=== PATIENT | male | born 1960 | race Caucasian/White ===

== ENCOUNTER 2018-01-29 11:46 | Emergency (ER) | payer BC ==
--- NOTE | 2018-01-29 12:20 | EDM.PDOC ---
ED HPI GENERAL MEDICAL PROBLEM - General Chief Complaint: Neuro Symptoms/Deficits Stated Complaint: DIZZY, BLURY VISIION Time Seen by Provider: 01/29/18 12:09 Source of Information: Reports: Patient History Limitations: Reports: No Limitations - History of Present Illness INITIAL COMMENTS - FREE TEXT/NARRATIVE: pt was on a conference call and he developed blurred vision and he later was feeling confused and this lasted for about 1 hour. He then cleared and he felt normal. He dioes not have a headache. He has normal vision at this time. Onset: Sudden Duration: Hour(s): Location: Reports: Head Associated Symptoms: Reports: Confusion - Related Data Allergies Allergy/AdvReac Type Severity Reaction Status Date / Time No Known Allergies Allergy Verified 01/29/18 13:28 Home Meds: Home Meds NK [No Known Home Meds] 01/29/18 [History] ED ROS GENERAL - Review of Systems Review Of Systems: See Below Constitutional: Reports: No Symptoms HEENT: Reports: Other (pt has visual blurring and he felt like he was not hearing what he was told at the clinic. He was not processing. ) Respiratory: Reports: No Symptoms Cardiovascular: Reports: No Symptoms Endocrine: Reports: No Symptoms GI/Abdominal: Reports: No Symptoms : Reports: No Symptoms Musculoskeletal: Reports: No Symptoms Skin: Reports: No Symptoms ED EXAM, NEURO - Physical Exam Exam: See Below Text/Narrative:: pt arrived stating that he had about 1 hour of blurred vision and then he was having trouble thinking and was not able to follow directuions. He did not have a headache. He was not dizzy or sick to his stomach. Exam Limited By: No Limitations General Appearance: Alert, No Apparent Distress, Anxious, Other (pupils are equal and reactive. ) Ears: Normal TMs Nose: Normal Inspection Throat/Mouth: Normal Inspection Head Exam: Atraumatic Neck: Supple Respiratory/Chest: No Respiratory Distress Cardiovascular: Regular Rate, Rhythm GI/Abdominal: Soft, Non-Tender (Male) Exam: Deferred Rectal (Males) Exam: Deferred Neurological: Alert, Oriented x 3 Back Exam: Normal Inspection Extremities: Normal Inspection Psychiatric: Normal Affect, Anxious Course - Vital Signs Last Recorded V/S: Last Vital Signs Temp 35.4 C 01/29/18 12:00 Pulse 56 L 01/29/18 12:00 Resp 14 01/29/18 12:00 BP 122/54 L 01/29/18 12:00 Pulse Ox 100 01/29/18 12:00 - Orders/Labs/Meds Orders: Active Orders 24 hr Category Date Time Status EKG Documentation Completion [RC] ASDIRECTED Care 01/29/18 12:09 Active Brain wo Cont [MR] Stat Exams 01/29/18 15:43 Taken Sodium Chloride 0.9% [Saline Flush] Med 01/29/18 15:05 Active 10 ml FLUSH ASDIRECTED PRN Saline Lock Insert [OM.PC] Routine Oth 01/29/18 15:05 Ordered EKG 12 Lead [EK] Routine Ther 01/29/18 12:09 Ordered Medication Orders Sodium Chloride (Saline Flush) 10 ml FLUSH ASDIRECTED PRN PRN Reason: Keep Vein Open Last Admin: 01/29/18 15:53 Dose: 10 ml Labs: Laboratory Tests 01/29/18 01/29/18 01/29/18 Range/Units 12:25 12:25 13:22 WBC 7.4 (4.5-11.0) K/uL RBC 5.00 (4.30-5.90) M/uL Hgb 15.4 H (12.0-15.0) g/dL Hct 45.3 (40.0-54.0) % MCV 91 (80-98) fL MCH 31 (27-31) pg MCHC 34 (32-36) % Plt Count 247 (150-400) K/uL Neut % (Auto) 72 H (36-66) % Lymph % (Auto) 20 L (24-44) % Castro % (Auto) 8 H (2-6) % Eos % (Auto) 0 L (2-4) % Baso % (Auto) 0 (0-1) % Sodium 137 L (140-148) mmol/L Potassium 4.4 (3.6-5.2) mmol/L Chloride 101 (100-108) mmol/L Carbon Dioxide 26 (21-32) mmol/L Anion Gap 14.4 H (5.0-14.0) mmol/L BUN 13 (7-18) mg/dL Creatinine 0.9 (0.8-1.3) mg/dL Est Cr Clr Drug Dosing 3.35 mL/min Estimated GFR (MDRD) > 60 (>60) Glucose 101 (74-106) mg/dL Calcium 8.3 L (8.5-10.1) mg/dL Total Bilirubin 0.6 (0.2-1.0) mg/dL AST 23 (15-37) U/L ALT 39 (12-78) U/L Alkaline Phosphatase 78 (46-116) U/L Total Protein 7.7 (6.4-8.2) g/dL Albumin 4.1 (3.4-5.0) g/dL Globulin 3.6 H (2.3-3.5) g/dL Albumin/Globulin Ratio 1.1 L (1.2-2.2) Urine Color Yellow Urine Appearance Clear Urine pH 6.0 (4.5-8.0) Ur Specific N[place]bit 1.005 L (1.008-1.030) Urine Protein Negative (NEGATIVE) mg/dL Urine Glucose (UA) Normal (NEGATIVE) mg/dL Urine Ketones Negative (NEGATIVE) mg/dL Urine Occult Blood Negative (NEGATIVE) Urine Nitrite Negative (NEGAITVE) Urine Bilirubin Negative (NEGATIVE) Urine Urobilinogen Normal (NORMAL) mg/dL Ur Leukocyte Esterase Negative (NEGATIVE) Urine RBC 0-5 (0-5) Urine WBC 0-5 (0-5) Ur Epithelial Cells Few Amorphous Sediment Not seen Urine Bacteria Few Urine Mucus Not seen Meds: Medications Generic Name Dose Route Start Last Admin Trade Name Freole PRN Reason Stop Dose Admin Sodium Chloride 10 ml 01/29/18 15:05 01/29/18 15:53 Saline Flush FLUSH 10 ml ASDIRECTED PRN Administration Keep Vein Open Discontinued Medications Generic Name Dose Route Start Last Admin Trade Name Freole PRN Reason Stop Dose Admin Lorazepam 0.5 mg 01/29/18 15:06 Ativan IVPUSH 01/29/18 15:07 ONETIME ONE Lorazepam 0.5 mg 01/29/18 15:06 Ativan PO 01/29/18 15:07 ONETIME ONE Lorazepam 1 mg 01/29/18 15:44 01/29/18 15:50 Ativan IVPUSH 01/29/18 15:45 1 mg ONETIME ONE Administration - Re-Assessments/Exams Free Text/Narrative Re-Assessment/Exam: 01/29/18 15:23 pt had a normal ekg, normal lab work. His cat scan of the head was normal. A MRI of the head was reccommended by Dr Winkler neurology [facility]. This was attempted and he was not able to tolerate it. He will need some sedation. The Patient did not want to do it today but will return tomorrow for the study. 01/29/18 17:32 Mri of the head was normal. Departure - Departure Time of Disposition: 15:08 Disposition: Home, Self-Care 01 Condition: Fair Clinical Impression: Blurred vision, Confusion - Discharge Information Instructions: Blurred Vision, Adult, Confusion Referrals: Mitul Hay MD [Primary Care Provider] - Forms: ED Department Discharge Care Plan Goals: Mri was normal, rtc if further problems. If further symptoms see neurology. - My Orders Last 24 Hours: My Active Orders 01/29/18 12:09 EKG Documentation Completion [RC] ASDIRECTED EKG 12 Lead [EK] Routine 01/29/18 15:05 Sodium Chloride 0.9% [Saline Flush] 10 ml FLUSH ASDIRECTED PRN Saline Lock Insert [OM.PC] Routine 01/29/18 15:43 Brain wo Cont [MR] Stat - Assessment/Plan Last 24 Hours: My Active Orders 01/29/18 12:09 EKG Documentation Completion [RC] ASDIRECTED EKG 12 Lead [EK] Routine 01/29/18 15:05 Sodium Chloride 0.9% [Saline Flush] 10 ml FLUSH ASDIRECTED PRN Saline Lock Insert [OM.PC] Routine 01/29/18 15:43 Brain wo Cont [MR] Stat
--- NOTE | 2018-01-29 13:11 | CT ---
Head wo Cont CLINICAL HISTORY: Blurred vision, confusion COMPARISON: None TECHNIQUE: Transverse scans were obtained from the base of the skull through the vertex without IV co ntrast on a multislice, multidetector CT scanner. Auto dosage reduction and iterative reconstruction techniques employed. FINDINGS: No focal abnormal parenchymal density is identified.. There is no mass effect, hemorrhage, or extraaxial collection. The basal cisterns and sulci over the convexities are normal. The ventricle s are normal for age. IMPRESSION: Essentially negative CT head without
[2018-01-29] MEDS ORDERED: Sodium Chloride 0.9% 10 ML Syringe FLUSH PRN (15:05)
[2018-01-29] MEDS ORDERED: LORazepam 0.5 MG Tab PO ONE (15:06)
[2018-01-29] MEDS ORDERED: LORazepam 2 MG/ML SDV IVPUSH ONE ×2 (15:06→15:44)
== END 2018-01-29 17:45 | disposition home or self-care (01) ==
LOC: JP.ED 11:46
DX: H53.8 Other visual disturbances (principal); R41.0 Disorientation, unspecified
CPT/HCPCS: 36415; 70450; 70551; 80053; 81001; 85025; 93005; 96374; 96376; 99285; J2060; J7050

== ENCOUNTER 2019-08-22 16:30 | Emergency (ER) | payer BC ==
--- NOTE | 2019-08-22 17:30 | EDM.PDOC ---
ED HPI GENERAL MEDICAL PROBLEM - General Chief Complaint: Trauma Stated Complaint: FALL OFF LADDER Time Seen by Provider: 08/22/19 17:10 Source of Information: Reports: Patient, Family, Old Records History Limitations: Reports: No Limitations - History of Present Illness INITIAL COMMENTS - FREE TEXT/NARRATIVE: 58 yo male fell off a ladder landing in the dirt on his side. Believes he hit the R side of his head and was transiently disoriented. There was no LOC, or vomiting. Does have a mild LACKEY. Is not on any anticoagulants. Denies a stiff neck. Is here via car with his . No other areas of injury. Onset: Today Onset Date: 08/22/19 Onset Time: 15:45 Duration: Minutes:, Improving Location: Reports: Head Quality: Reports: Ache (mild) Severity: Mild Improves with: Reports: Other (time) Worsens with: Reports: None Context: Reports: Trauma Associated Symptoms: Reports: Headaches. 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: Reports: Other (see below) (none) right lower leg and back slight headache Pain Score (Numeric/FACES): 2 - Related Data Allergies Allergy/AdvReac Type Severity Reaction Status Date / Time No Known Allergies Allergy Verified 08/22/19 16:57 Home Meds: Home Meds NK [No Known Home Meds] 01/29/18 [History] Past Medical History - Past Health History Medical/Surgical History: Denies Medical/Surgical History - Infectious Disease History Infectious Disease History: Reports: Chicken Pox, Shingles Social & Family History - Tobacco Use Smoking Status *Q: Never Smoker - Caffeine Use Caffeine Use: Reports: None Review of Systems - Review of Systems Review Of Systems: See Below Constitutional: Reports: No Symptoms Eyes: Reports: No Symptoms Ears: Reports: No Symptoms Nose: Reports: No Symptoms Mouth/Throat: Reports: No Symptoms Respiratory: Reports: No Symptoms Cardiovascular: Reports: No Symptoms GI/Abdominal: Reports: No Symptoms. Denies: Nausea Musculoskeletal: Reports: No Symptoms Skin: Reports: Wound (superficial abrasion R calf) Neurological: Reports: Confusion (transient, now resolved.), Headache (mild). Denies: Dizziness, Numbness, Tingling Psychiatric: Reports: No Symptoms ED EXAM, GENERAL - Physical Exam Exam: See Below Exam Limited By: No Limitations General Appearance: Alert, WD/WN, No Apparent Distress Eye Exam: Bilateral Eye: EOMI, PERRL Ears: Normal External Exam, Normal Canal, Hearing Grossly Normal, Normal TMs Ear Exam: Bilateral Ear: Auricle Normal, Canal Normal, TM normal Nose: Normal Inspection, No Blood Throat/Mouth: Normal Inspection, Normal Lips, Normal Oropharynx, Normal Voice, No Airway Compromise Head: Atraumatic, Normocephalic Neck: Normal Inspection Respiratory/Chest: No Respiratory Distress, Lungs Clear, Normal Breath Sounds, No Accessory Muscle Use Cardiovascular: Regular Rate, Rhythm, No Edema GI/Abdominal: Normal Bowel Sounds, Soft, Non-Tender, No Distention Back Exam: Normal Inspection Extremities: Normal Inspection, Normal Range of Motion, Non-Tender, No Pedal Edema Neurological: Alert, Oriented, CN II-XII Intact, Normal Cognition, No Motor/ Sensory Deficits Psychiatric: Normal Affect, Normal Mood Skin Exam: Warm, Dry, Intact, Normal Color, No Rash Course - Vital Signs Last Recorded V/S: Last Vital Signs Temp 37.0 C 08/22/19 16:53 Pulse 80 08/22/19 16:53 Resp 18 08/22/19 16:53 BP 144/40 H 08/22/19 16:53 Pulse Ox 98 08/22/19 16:53 Orthostatic Blood Pressure [ 133/76 Standing] Orthostatic Blood Pressure [ 134/68 Sitting] Orthostatic Blood Pressure [ 130/77 Supine] - Orders/Labs/Meds Orders: Active Orders 24 hr Category Date Time Status Orthostatic Vital Signs [RC] ASDIRECTED Care 08/22/19 16:41 Active Departure - Departure Time of Disposition: 17:30 Disposition: Home, Self-Care 01 Condition: Good Clinical Impression: Concussion Qualifiers: Encounter type: initial encounter Loss of consciousness presence/duration: without LOC Qualified Code(s): S06.0X0A - Concussion without loss of consciousness, initial encounter - Discharge Information *PRESCRIPTION DRUG MONITORING PROGRAM REVIEWED*: No *COPY OF PRESCRIPTION DRUG MONITORING REPORT IN PATIENT RUFUS: No Instructions: Concussion, Adult, [id number] Referrals: PCP,None [Primary Care Provider] - Additional Instructions: Rest for the next couple of days. Acetaminophen as needed for symptoms. Avoid exertion until fully recovered. Avoid dangerous activities for the next week that might risk re-injury. Return for recurrent vomiting. Worsening headache or decreased alertness/ confusion or seizure. Sepsis Event Note - Evaluation Sepsis Screening Result: No Definite Risk - Focused Exam Vital Signs: Vital Signs Temp Pulse Resp BP Pulse Ox 08/22/19 16:53 37.0 C 80 18 144/40 H 98 Date Exam was Performed: 08/22/19 Time Exam was Performed: 17:25 - My Orders Last 24 Hours: My Active Orders 08/22/19 16:41 Orthostatic Vital Signs [RC] ASDIRECTED - Assessment/Plan Last 24 Hours: My Active Orders 08/22/19 16:41 Orthostatic Vital Signs [RC] ASDIRECTED
== END 2019-08-22 17:36 | disposition home or self-care (01) ==
LOC: JP.ED 16:30
DX: S06.0X0A Concussion without loss of consciousness, initial encounter (principal); W11.XXXA Fall on and from ladder, initial encounter
CPT/HCPCS: 99283